=== PATIENT | female | born 1945 | race Caucasian/White ===

== ENCOUNTER → 2016-07-11 | Outpatient (CLI) | payer OTHER ==
[2016-07-11 12:55] VITALS: BP 131/62
--- NOTE | 2016-07-12 16:58 | CT ---
HISTORY: Low back pain Study: CT lumbar spine myelography Comparison: 03/28/2016 Technique: Multiple axial images of the lumbar spine were obtained from the thoracolumbar junction to the sacrum without the administration of IV contrast. Sagittal and coronal reformats were perfor med and reviewed. Dose reduction techniques including Automated Exposure Control (AEC) and adjustme nt of mA and kV were utilized. Findings: Alignment of the lumbar spine is maintained. No evidence for acute fracture or subluxation identifi ed. Vertebral body heights are preserved. Multilevel spondylosis is present with disc space narrowi ng most prominent at L3-L4 and L5-S1. Multilevel facet degenerative changes are seen in the lower dianna mbar spine. Incidental note is made of cholelithiasis. The paraspinal soft tissues are otherwise wi thin normal limits. T12-L1: No significant stenosis identified. L1-L2: No significant stenosis identified. L2-L3: There is a mild circumferential disc bulge and mild facet degenerative changes without signif icant stenosis identified. L3-L4: There is a broad-based disc bulge and hypertrophic changes of the posterior elements resultin g in mild spinal canal stenosis, and moderate bilateral lateral recess and foraminal stenosis. L4-5: There is a broad-based disc bulge and facet hypertrophic changes without significant stenosis identified. L5-S1: There is a broad-based disc bulge with calcified annular tear on the right, chronic in nature with at least moderate right foraminal stenosis. IMPRESSION: 1. Mild spinal stenosis and moderate bilateral lateral recess and foraminal stenosis at L3-L4. 2. Broad-based disc bulge at L5-S1 asymmetric to the right where there is a chronic calcified annula r tear resulting in moderate right foraminal stenosis. Reported By:
== END | disposition home or self-care (01) | DRG 700 ==
LOC: RAD 09:48
PROVIDERS: ATTEND Neurological Surgery
PROC: B01BYZZ Fluoroscopy of Spinal Cord using Other Contrast (ICD-10-PCS; principal; 2016-07-11)
DX: N28.89 Other specified disorders of kidney and ureter (principal); M47.896 Other spondylosis, lumbar region
CPT/HCPCS: 36415; 62304; 72132; 77002; 77003; 85610